=== PATIENT | female | born 1970 | race African-American/Black ===

== ENCOUNTER 2017-05-02 18:36 | Emergency (ER) | payer MEDICAID | END 2017-05-02 21:38 | disposition home or self-care (01) | LOC: D.ER 18:36 | DX: S39.012A Strain of muscle, fascia and tendon of lower back, initial encounter (principal); V49.59XA Passenger injured in collision with other motor vehicles in traffic accident, initial encounter; Y93.89 Activity, other specified; Y92.410 Unspecified street and highway as the place of occurrence of the external cause; I10 Essential (primary) hypertension ==

== ENCOUNTER → 2017-06-23 10:28 | Outpatient (CLI) | payer MEDICAID | END | disposition home or self-care (01) | LOC: D.MRI 10:00 | DX: M54.5 Low back pain (principal) ==

== ENCOUNTER → 2019-03-24 17:12 | Outpatient (CLI) | payer SELFPAY ==
[~2019-03-24 17:12] MED LIST: AMBIEN10 MG PO; BENADRYL25 MG PO; CELEXA40 MG PO; IBUPROFEN200 MG PO; KLONOPIN1 MG PO; MULTI-DAY VITAM1 TAB PO; NORVASC10 MG PO; VALSARTAN-HCTZ1 EAC2 PO
== END | disposition home or self-care (01) ==
LOC: D.LABREF 17:12
PROVIDERS: ATTEND Orthopaedic Surgery
DX: M16.12 Unilateral primary osteoarthritis, left hip (principal)

== ENCOUNTER 2019-04-12 07:35 | Outpatient (CLI) | payer MEDICARE ==
[2019-04-07 11:56] LABS: CALC OSMOLALITY 282 mosm/kg (275-300); CALCIUM 8.9 mg/dL (8.5-10.1); CARBON DIOXIDE 28.8 mmol/L (21.0-32.0); CHLORIDE - SERUM 103 mmol/L (98-107); CREATININE - SERUM 0.7 mg/dL (0.6-1.3); POTASSIUM - SERUM 3.4 mmol/L (3.5-5.1); SODIUM 140 mmol/L (136-145); UREA NITROGEN 8 mg/dL (7-18); eGFR NON AFRICAN AMERICAN > 90 mL/min (90-120)
[2019-04-07 11:57] LABS: GLUCOSE 207 mg/dL (74-106)
[2019-04-07 11:59] LABS: APTT 26.3 SECONDS (22.8-39.4); INR 1.01 (0.85-1.17); PROTIME 12.8 SECONDS (11.6-15.0)
[2019-04-07 12:08] LABS: BASOPHILS 0.2 % (0-2); EOSINOPHILS 5.3 % (0-7); HEMATOCRIT 42.3 % (36.0-48.0); HEMOGLOBIN 13.5 g/dL (12-16); IMMATURE GRANULOCYTES 0.3 % (0-5); LYMPHOCYTES 24.8 % (15-50); MCH 27.6 pg (26.0-34.0); MCHC 31.9 g/dL (31.0-37.0); MCV 86.3 fL (80.0-100.0); MEAN PLATELET VOLUME 10.2 fL (7.4-10.4); MONOCYTES 9.9 % (2-11); NEUTROPHILS 59.5 % (40-80); PLATELET COUNT 283 10x3/uL (130-400); RDW 14.5 % (11.5-14.5); WBC 8.6 10x3/uL (4.8-10.8)
[2019-04-07 12:33] LABS: APPEARANCE CLEAR (CLEAR); COLOR YELLOW (YELLOW); SPECIFIC GRAVITY 1.015 (1.005-1.020)
[2019-04-07 12:36] LABS: BILIRUBIN NEGATIVE (NEGATIVE); EPITHELIAL CELLS 0-5 /hpf (0-5); GLUCOSE 250 mg/dL (NEGATIVE); KETONE NEGATIVE (NEGATIVE); NITRITE NEGATIVE (NEGATIVE); PROTEIN NEGATIVE (NEGATIVE); RED CELLS - URINE OCC /hpf (0-5); UROBILINOGEN NORMAL (NORMAL); WHITE CELLS - URINE OCC /hpf (NEGATIVE)
[2019-04-07 12:38] LABS: BACTERIA MODERATE /hpf (NEGATIVE)
[2019-04-07 12:39] LABS: MUCUS <1+ /lpf (NONE SEEN)
[~2019-04-12] VITALS: Ht 177.8 cm; Wt 162.4 kg
--- NOTE | 2019-04-12 08:00 | NUR ---
PROCEDURE CANCELLED PER DR MUÑIZ DUE TO POSITIVE UTI.
--- NOTE | 2019-04-12 08:02 | NUR ---
PT LEAVING OPS AT THIS TIME, NAD NOTED.
== END 2019-04-12 08:07 | disposition home or self-care (01) ==
LOC: D.OPS 07:35 → D.SDCHOLD 07:35 → D.OPS 08:07 → D.SDCHOLD 08:20 → EDSTATUS 10:00 → D.SDCHOLD 10:45
PROVIDERS: ATTEND Orthopaedic Surgery
DX: M16.12 Unilateral primary osteoarthritis, left hip (principal)

== ENCOUNTER 2019-04-12 07:37 | Inpatient (IN) | payer MEDICARE, OTHER ==
[~2019-04-12] VITALS: Ht 177.8 cm; Wt 161.4 kg
[2019-05-07] MEDS ORDERED: TENORMIN50 MG PO (07:58)
[2019-05-07 08:38] LABS: BASOPHILS 0.4 % (0-2); HEMOGLOBIN 12.7 g/dL (12-16); IMMATURE GRANULOCYTES 0.4 % (0-5); LYMPHOCYTES 35.9 % (15-50); MCH 27.1 pg (26.0-34.0); MCHC 31.8 g/dL (31.0-37.0); MCV 85.3 fL (80.0-100.0); MEAN PLATELET VOLUME 9.5 fL (7.4-10.4); MONOCYTES 8.1 % (2-11); NEUTROPHILS 49.2 % (40-80); PLATELET COUNT 288 10x3/uL (130-400); RBC 4.69 10x6/uL (4.00-5.40); RDW 14.6 % (11.5-14.5); WBC 8.1 10x3/uL (4.8-10.8)
[2019-05-07 08:45] LABS: CALC OSMOLALITY 288 mosm/kg (275-300); CALCIUM 8.2 mg/dL (8.5-10.1); CHLORIDE - SERUM 106 mmol/L (98-107); CREATININE - SERUM 0.7 mg/dL (0.6-1.3); GLUCOSE 186 mg/dL (74-106); POTASSIUM - SERUM 3.7 mmol/L (3.5-5.1); SODIUM 142 mmol/L (136-145); UREA NITROGEN 16 mg/dL (7-18); eGFR NON AFRICAN AMERICAN > 90 mL/min (90-120)
[2019-05-07 08:59] LABS: APTT 27.5 SECONDS (22.8-39.4); INR 1.05 (0.85-1.17); PROTIME 13.2 SECONDS (11.6-15.0)
[2019-05-07 10:58] LABS: APPEARANCE HAZY (CLEAR); BILIRUBIN NEGATIVE (NEGATIVE); COLOR YELLOW (YELLOW); GLUCOSE 50 mg/dL (NEGATIVE); KETONE SMALL mg/dL (NEGATIVE); NITRITE NEGATIVE (NEGATIVE); PROTEIN TRACE mg/dL (NEGATIVE); SPECIFIC GRAVITY 1.025 (1.005-1.020); UROBILINOGEN NORMAL (NORMAL)
[2019-05-07 10:59] LABS: AMORPHOUS SEDIMENT <1+ /lpf (NONE SEEN); BACTERIA MODERATE /hpf (NEGATIVE); EPITHELIAL CELLS 0-5 /hpf (0-5); MUCUS <1+ /lpf (NONE SEEN); RED CELLS - URINE 0-5 /hpf (0-5); WHITE CELLS - URINE 0-5 /hpf (NEGATIVE)
[2019-05-07 11:00] LABS: CALCIUM OXALATE CRYSTALS OCC /hpf (NONE SEEN)
[2019-05-10 07:05] VITALS: BP 183/100; BMI 51.4
[2019-05-10] MEDS ORDERED: ACETAMINOPHEN500 M1 PO (07:14)
[2019-05-10 08:51] LABS: APPEARANCE CLEAR (CLEAR); BACTERIA FEW /hpf (NEGATIVE); BILIRUBIN NEGATIVE (NEGATIVE); COLOR YELLOW (YELLOW); GLUCOSE 500 mg/dL (NEGATIVE); KETONE NEGATIVE (NEGATIVE); MUCUS <1+ /lpf (NONE SEEN); NITRITE NEGATIVE (NEGATIVE); PROTEIN TRACE mg/dL (NEGATIVE); RED CELLS - URINE NONE SEEN /hpf (0-5); SPECIFIC GRAVITY 1.015 (1.005-1.020); UROBILINOGEN NORMAL (NORMAL); WHITE CELLS - URINE 0-5 /hpf (NEGATIVE)
--- NOTE | 2019-05-10 10:07 | NUR ---
PREVENA WOUNDVAC PLACED POSTOPERATIVE
[2019-05-10 11:43] VITALS: BP 150/92
[2019-05-10 13:19] VITALS: Ht 177.8 cm; Wt 161.4 kg
--- NOTE | 2019-05-10 14:02 | OP ---
PATIENT NAME: JANETTE CHILEL MEDICAL RECORD: [id number] :66 LOCATION:D[id number] ADMISSION DATE:05/10/19 SURGEON: LARS MUÑIZ MD DATE OF OPERATION: 05/10/2019 PREOPERATIVE DIAGNOSIS: Severe avascular necrosis with collapse of the left hip. SECONDARY DIAGNOSIS: Morbid obesity. POSTOPERATIVE DIAGNOSIS: Severe avascular necrosis with collapse of the left hip. PROCEDURE: Left total hip arthroplasty. SURGEON: Lars Muñiz MD ROOM SERVICE FOOD SERVICE ATTENDANT: VANIA Velez INTRAOPERATIVE COMPLICATIONS: None. SUMMARY OF PATHOLOGIC FINDINGS: The patient had clearly end-stage collapse of the femoral head as seen on radiographs. Furthermore, the patient does have morbid obesity; however, her inability to walk, rendered this is much like a hip fracture and surgery was planned, total hip arthroplasty was performed with no complications. IMPLANTS USED: Trident II Tritanium cluster hole acetabular shell size 56, alpha code F. Accolade 132 #3 TMZF coated. Trident X3 polyethylene 0-degree oh, Biolox delta ceramic V40 femoral head, standard. ESTIMATED BLOOD LOSS: 100 cc. OPERATIVE SUMMARY IN DETAIL: After obtaining the appropriate preoperative orthopedic surgery consent as well as anesthetic consultation, evaluation and clearance, the patient was brought to the operating room and placed on the operating table in supine position. After adequate general endotracheal anesthesia had been administered, the patient was placed in a right lateral decubitus position. All pressure points were well padded to include down leg peroneal pad as well as axillary roll. The patient was held firmly to the operating table using the vacuum pack suction system. The patient's left lower extremity and hip were prepped and draped in a routine sterile fashion. At this point, the appropriate timeout was taken with the appropriate patient identifiers and agreed upon by all. Curvilinear incision was made over the greater trochanter, taken down to the level of the IT band which was split in line with the fibers of the IT band and retracted to reveal the patient's gluteus medius and minimus muscular attachments of the greater trochanter. These were reflected anteriorly for direct visualization of the capsule. Capsule was excised and it required a substantial amount of fraying to get any rotation of the femoral head. Eventually, the femoral head was dislocated. The femoral neck cut was made using the [employer] femoral neck cutting guide. The acetabulum was then thoroughly exposed. Circumferential labrectomy was followed by serial and sequential reaming to a size 55 for a size 56 cup. The Trident II cup was in excellent position and locked in place with no need for screws. Polyethylene was then put in place and checked for stability. At this point, OPERATIVE REPORT [id number] JANETTE CHILEL attention was turned to the proximal femur. Serial and sequential reaming and broaching were done for a size 3. The patient had massive cortices and a small inner canal, size 3 TMZF coated stem was placed. Appropriate trials were taken. It was felt that the standard was the most appropriate for leg length positioning. Standard was then tamped into place on the Kimble taper. The hip was reduced. Intraoperative radiographs were taken and showed the patient to have excellent leg length quality. Wound was then copiously irrigated, filled with a gram of vancomycin and a gram of tobramycin and then the gluteus medius and minimus were reattached to the greater trochanter in a transosseous fashion with #5 Ethibond. The remainder of the closure was done by Delmer Blount including the IT band with #2 Ethibond. Subcutaneous closure with 0 Vicryl followed by a 2-0 Vicryl and skin naz. Sterile dressings were applied. The patient was awakened and taken to the recovery room in stable condition. All final needle and sponge counts were correct. TRANSINT:[id number] Voice Confirmation ID: [id number] DOCUMENT ID: [id number] ANTONINO MACIAS, LARS PALMA at 1402 CC: [id number] DICTATION DATE: 05/10/19 1000 COLORING ROOM WORKER: 05/10/19 1336 ADM IN [facility] [address] [place] [address]
--- NOTE | 2019-05-10 19:17 | NUR ---
ATE MOST OF SUPPER. PUREWICK WITH 800CC OUT. DENIES NEEDS.
--- NOTE | 2019-05-10 19:40 | NUR ---
PT SITTING UP IN BED WITHOUT DISTRESS, AOX4. LEFT HIP DRESSING CDI. O2 5L/NC. PUREWICK IN PLACE. IV RIGHT HAND INFUSING 1/2NS @ 100. PT STATES PAIN 12/26. GAVE OXY ORDERED. DENIES OTHER NEEDS. CL IN REACH, WILL CTM
[2019-05-10 20:37] VITALS: BP 149/80
--- NOTE | 2019-05-10 21:15 | NUR ---
PT STATES PAIN IN LEFT HIP 11/25, GAVE TORADOL ORDERED. WILL CTM
[2019-05-11 00:52] VITALS: BP 150/80
--- NOTE | 2019-05-11 01:00 | NUR ---
PT STATES PAIN 12/26, GAVE OXY ORDERED. WILL CTM
[2019-05-11 04:28] VITALS: BP 147/76
[2019-05-11 05:24] LABS: HEMATOCRIT 37.6 % (36.0-48.0); HEMOGLOBIN 11.7 g/dL (12-16); MCH 26.7 pg (26.0-34.0); MCHC 31.1 g/dL (31.0-37.0); MCV 85.6 fL (80.0-100.0); MEAN PLATELET VOLUME 9.6 fL (7.4-10.4); RBC 4.39 10x6/uL (4.00-5.40); RDW 14.6 % (11.5-14.5); WBC 10.6 10x3/uL (4.8-10.8)
--- NOTE | 2019-05-11 07:00 | NUR ---
ALERT AND ORIENTED, RESTING IN BED WITH EYES OPEN. NO C/O PAIN. NO S/S OF ACUTE DISTRESS NOTED. 2L O2, NC. IV TO RIGHT HAND, 1/2 NS INFUSING @ 100ML/HR. SITE PATENT WITHOUT REDNESS OR SWELLING. UP WITH PHYSICAL THERAPY. POD #1 LEFT HIP, PROVENA WOUNDVAC IN PLACE. PUREWICK IN PLACE. DENIES ANY NEEDS AT THIS TIME. CALL LIGHT IN REACH. WILL CONTINUE TO MONITOR.
[2019-05-11 08:53] VITALS: BP 126/80
--- NOTE | 2019-05-11 12:02 | NUR ---
I have reviewed this patient and I concur with the Shift Assessment completed by the Licensed Practical Nurse today this shift.
--- NOTE | 2019-05-11 12:18 | NUR ---
Rehab Note- Acute Inpatient Rehab prescreen order received. THe patient is POD #1 and has a pending PT Eval. Will follow at this time. Thank you for this referral! Maribel Ward RN Clinical Liaison, [facility] Rehab
[2019-05-11 12:55] VITALS: BP 148/89
[2019-05-11 16:49] VITALS: BP 153/85
--- NOTE | 2019-05-11 18:21 | NUR ---
ALERT AND ORIENTED, RESTING IN BED WITH EYES OPEN. DENIES ANY NEEDS AT THIS TIME. CALL LIGHT IN REACH. WILL CONTINUE TO MONITOR.
--- NOTE | 2019-05-11 19:45 | NUR ---
PT SITTING UP IN BED WITHOUT DISTRESS, AOX4. DENIES NEEDS AT THIS TIME. CL IN REACH, WILL CTM
[2019-05-11 21:10] VITALS: BP 169/78
[2019-05-12 04:56] LABS: HEMATOCRIT 35.8 % (36.0-48.0); HEMOGLOBIN 11.3 g/dL (12-16); MCH 26.8 pg (26.0-34.0); MCHC 31.6 g/dL (31.0-37.0); MCV 84.8 fL (80.0-100.0); MEAN PLATELET VOLUME 9.3 fL (7.4-10.4); RBC 4.22 10x6/uL (4.00-5.40); RDW 14.5 % (11.5-14.5); WBC 9.7 10x3/uL (4.8-10.8)
[2019-05-12 08:09] VITALS: BP 169/88
--- NOTE | 2019-05-12 08:18 | NUR ---
STATES PAIN IS A 8 OUT OF 10 ON THE PAIN SCALE. PAIN MED PROVIDED. CL IN REACH. PUREWICK IN PLACE. NO FURTHER NEEDS AT THIS TIME. WCTM
--- NOTE | 2019-05-12 15:27 | NUR ---
PATIENT ASSISTED TO BEDSIDE COMMODE AND BACK TO BED. CL IN REACH. NO FURTHER NEEDS. WCTM
[2019-05-12 15:49] VITALS: BP 151/64
--- NOTE | 2019-05-12 17:37 | NUR ---
FAMILY IN ROOM. 2 ICE PACKS REQUESTED AND PROVIDED. PAIN MED PROVIDED. CL IN REACH. NO FURTHER NEEDS AT THIS TIME.
--- NOTE | 2019-05-12 20:00 | NUR ---
ALERT RESTIGN IN BED, REOPORTS GOOD PAIN RELIEF FROM PAIN PILL EARLIER, ASSISTED UP TO BEDSIDE COMODE AND BACK TO BED, DRESSING INTACT TO LEFT HIP WITH WOUND VAC, SUCTION HOSE PULLED LOOSE FROM DRESSING, REPLACED AND SECURED WITH WOUND VAC TRANPARENT DRESSING GOOD SUCTION OBTAINED, SEE SHIFT ASSESSEMENT, CALL LIGHT IN REACH
[2019-05-13] VITALS: BP 144/73
[2019-05-13] MEDS ORDERED: ELIQUIS2.5 MG PO (08:32)
[2019-05-13] MEDS ORDERED: PERCOCET 10-321 EAC1 PO (08:32)
[2019-05-13 08:43] VITALS: BP 149/85
--- NOTE | 2019-05-13 09:02 | MORECARE ---
CASE MANAGEMENT DISCHARGE SUMMARY PATIENT: JANETTE CHILEL UNIT: [id number] ADM DATE: 05/10/19 AGE: 48 : [birth year] SEX: F ROOM/BED: [id number].2211 AUTHOR: KALIE,DOC PHYSICIAN: REFERRING PHYSICIAN: LARS MUÑIZ MD DATE OF SERVICE: 05/13/19 Discharge Plan Patient Name: JANETTE CHILEL Facility: [facility]:[place] : 1970 Planned Disposition: Inpatient Rehab Anticipated Discharge Date: Discharge Date: Expected LOS: Initial Reviewer: [email or web address] Initial Review Date: 05/10/2019 Generated: 05/13/19 10:02 am Comments DCP- Discharge Planning Updated by [email or web address]: Nel Hernandez on 05/13/19 7:[address] Patient Name: JANETTE CHILEL Admission Status: Elective Accout number: [id number] Admission Date: 05-10-2019 : 1970 Admission Diagnosis: Attending: LASR MUÑIZ Current LOS: 3 Anticipated DC Date: Planned Disposition: Inpatient Rehab Primary Insurance: MEDICARE A & B Discharge Planning Comments: CM met with patient to complete initial dc planning assessment. CM educated patient on the CM role and verbal consent given by patient to complete assessment. Patient lives at home alone where she is having difficulty caring for herself these past 4 months. At discharge patient plans to go to inpatient rehab at [facility] and feels this is a safe discharge. CM discussed availability of home health, rehab services, and medical equipment. Patient states that she has a cane and a rollator walker at home. Patient has 10 steps in front and 5 steps in back. [facility] for inpatient rehab obtained along with IMM served and explained. Patient denied known discharge needs at this time. CM will continue to follow and will assist as needed with dc plans/needs. First Coat Operator: Nel Hernandez DCPIA - Discharge Planning Initial Assessment Updated by [email or web address]: Nel Hernandez on 05/13/19 8:57 am * Is the patient Alert and Oriented? Yes * How many steps to enter\exit or inside your home? 02/20 * PCP [place] * Pharmacy [facility] * Preadmission Environment Home Alone * ADLs Partial Dependent * Partial ADLs (Assistance needed) Ambulation Bathing Toileting * Equipment Cane Rolling Walker * List name and contact numbers for known caregivers / representatives who currently or will assist patient after discharge: JUAN [phone] * Verbal permission to speak to the caregivers and representatives has been obtained from the patient. N/A * Community resources currently utilized None * Additional services required to return to the preadmission environment? Yes * Can the patient safely return to the preadmission environment? No * Has this patient been hospitalized within the prior 30 days at any hospital? No Coverage Notice Reviewer: [email or web address] Aaron Hernandez Notice Issued Date-Time: 05/13/2019 8:45 Notice Type: Patient Choice Letter Notice Delivered To: Patient Relationship to Patient: Wax Pumper Name: Delivery Method: HAND - Hand Delivered Ruthy Days: Prior Verbal Notification: Recipient Understood Notice: Yes Recipient Signature: Yes Med Rec Note Co-signed by Attending: Coverage Notice Comment: Reviewer: [email or web address] Aaron Hernandez Notice Issued Date-Time: 05/13/2019 8:45 Notice Type: IM Discharge Notice Notice Delivered To: Patient Relationship to Patient: Wax Pumper Name: Delivery Method: HAND - Hand Delivered Ruthy Days: Prior Verbal Notification: Recipient Understood Notice: Yes Recipient Signature: Yes Med Rec Note Co-signed by Attending: Coverage Notice Comment: [facility] FOR INPATIENT REHAB AT [facility] Patient Name: JANETTE CHILEL Page [phone] at 0902 All edits/amendments must be made on the electronic document DICTATION DATE: 05/13/19901 RUG CLEANER: RAJAN 05/13/19901 RPT#: [id number] DC DATE: STATUS: ADM IN [facility] [address] [place] [address] END OF REPORT
--- NOTE | 2019-05-13 11:02 | NUR ---
PATIENT RECIEVED THIS AM FROM PREVIOUS NURSE RESTING IN BED WITH NO NEEDS VOICED. WOUND VAC DRESSING INTACT TO LEFT HIP. PAIN CONTROLED WITH PERCOCET. PATIENT ASSISTED TO BSC WITH USE OF WALKER AND TOLERATED WELL. PATIENT TO DISCHARGE TO IP REHAB LATER TODAY.
[2019-05-13 12:26] VITALS: BP 147/86
--- NOTE | 2019-05-13 13:46 | NUR ---
REPORT CALLED TO JAYLA IN IP REHAB. IV REMOVED WITH NO REDNESS OR EDEMA NOTED. PATIENT TAKEN BY WHEELCHAIR TO REHAB
--- NOTE | 2019-05-14 11:48 | NUR ---
Removed Ulta vac and placed pt on her Prevena Plus machine.
== END 2019-05-13 13:48 | DRG 469 ==
LOC: D.SDCHOLD 07:37 → UNDOADMIN 07:37 → D.SDCHOLD 04-19 10:45 → D.MS 05-10 11:43 → D.SDCHOLD 05-10 17:15 → D.MS 05-13 13:48
PROVIDERS: ADMIT Orthopaedic Surgery; ATTEND Orthopaedic Surgery
PROC: 0SRB0J9 Replacement of Left Hip Joint with Synthetic Substitute, Cemented, Open Approach (ICD-10-PCS; principal; 2019-05-10 08:00)
DX: M87.852 Other osteonecrosis, left femur (principal); J95.2 Acute pulmonary insufficiency following nonthoracic surgery; Z68.43 Body mass index [BMI] 50.0-59.9, adult; M16.12 Unilateral primary osteoarthritis, left hip; E66.01 Morbid (severe) obesity due to excess calories

== ENCOUNTER 2019-05-13 13:32 | Inpatient (IN) | payer MEDICARE, OTHER ==
[~2019-05-13] VITALS: Ht 177.8 cm; Wt 161.5 kg
[~2019-05-13 13:32] MED LIST changes: +ACETAMINOPHEN500 M1 PO; +ELIQUIS2.5 MG PO; +PERCOCET 10-321 EAC1 PO; +TENORMIN50 MG PO
--- NOTE | 2019-05-13 14:12 | NUR ---
ADMITTED TO REHAB ROOM 1110. ALERT AND ORIENTED. NO DISTRESS NOTED. L HIP INCISION WITH WOUND VAC IN PLACE. SKIN CDI. CL IN REACH. SAFETY PRECAUTIONS GIVEN.
[2019-05-13 14:22] VITALS: BP 146/71; BMI 51.1
--- NOTE | 2019-05-13 14:49 | NUR ---
PATIENT ADMITTED TO REHAB FROM ACUTE FLOOR. DR. JULIEN IS HER PCP. DME AT HOME IS A CANE AND A ROLLATOR WALKER. DISCHARGE PLANS ARE FOR PATIENT TO RETURN HOME. WILL CONTINUE TO FOLLOW WITH PATIENT.
--- NOTE | 2019-05-13 19:16 | NUR ---
GREETED PATIENT AND INTRODUCED MYSELF HER NURSE. PATIENT IS LAYING IN BED ON LEFT SIDE AT THIS TIME RESTING. RESPIRATIONS EVEN. NO S/S OF DISTRESS. STATES THAT PAIN IS 6/10 IN LEFT HIP. DENIES ANY FURTHER NEEDS AT THIS TIME. CALL LIGHT IN REACH.
[2019-05-13 19:30] VITALS: BP 163/63
--- NOTE | 2019-05-14 02:25 | NUR ---
PT. RESTING QUIETLY. RESPIRATIONS EVEN. NO S/S OF DISTRESS. CALL LIGHT IN REACH.
[2019-05-14 07:08] LABS: BASOPHILS 0.2 % (0-2); EOSINOPHILS 4.8 % (0-7); HEMATOCRIT 37.8 % (36.0-48.0); HEMOGLOBIN 12.1 g/dL (12-16); IMMATURE GRANULOCYTES 0.5 % (0-5); LYMPHOCYTES 21.2 % (15-50); MCH 26.7 pg (26.0-34.0); MCV 83.3 fL (80.0-100.0); MEAN PLATELET VOLUME 9.1 fL (7.4-10.4); MONOCYTES 8.8 % (2-11); NEUTROPHILS 64.5 % (40-80); PLATELET COUNT 226 10x3/uL (130-400); RBC 4.54 10x6/uL (4.00-5.40); RDW 13.8 % (11.5-14.5); WBC 10.1 10x3/uL (4.8-10.8)
[2019-05-14 07:20] LABS: CALC OSMOLALITY 282 mosm/kg (275-300); CALCIUM 8.4 mg/dL (8.5-10.1); CARBON DIOXIDE 30.1 mmol/L (21.0-32.0); CHLORIDE - SERUM 103 mmol/L (98-107); CREATININE - SERUM 0.6 mg/dL (0.6-1.3); GLUCOSE 187 mg/dL (74-106); SODIUM 140 mmol/L (136-145); UREA NITROGEN 10 mg/dL (7-18); eGFR NON AFRICAN AMERICAN > 90 mL/min (90-120)
--- NOTE | 2019-05-14 08:00 | NUR ---
PT RESTING IN BED WITH EYES OPEN CALL LIGHT IN REACH WILL MONITER
[2019-05-14 10:24] VITALS: BP 147/83
[2019-05-14 13:43] VITALS: Ht 177.8 cm; Wt 161.5 kg
--- NOTE | 2019-05-14 17:48 | NUR ---
PT RESTING IN BED WITH EYES OPEN CALL LIGHT IN REACH WILL MONITER
[2019-05-14 19:00] VITALS: BP 175/84
--- NOTE | 2019-05-14 19:30 | NUR ---
PT LYING IN BED. CL IN REACH. DENIES NEEDS AT THIS TIME. BED IN LOW SIDE RAILS X2. A/O X4. LUNGS CLEAR. BOWEL ACTIVE X4. RESP EVEN AND UNLABORED. WILL CONTINUE TO MONITOR.
--- NOTE | 2019-05-15 01:11 | NUR ---
I have reviewed this patient and I concur with the Shift Assessment completed by the Licensed Practical Nurse today this shift.
[2019-05-15 08:00] VITALS: BP 107/82
--- NOTE | 2019-05-15 08:00 | NUR ---
PT RESTING IN BED WITH EYES OPEN CALL LIGHT IN REACH NO PROBLEMS WILL MONITER
--- NOTE | 2019-05-15 19:38 | NUR ---
PT IS RESTING IN BED WITH EYES OPEN. ALERT AND ORIENTED X 3. DENIES ACUTE DISCOMFORT AT THIS TIME. NO NEEDS VOICED. PROVENA IS INTACT TO LEFT HIP. VSS. SR'S ARE UP X 2 IN BED. CALL LIGHT AND BEDSIDE TABLE ARE WITHIN EASY REACH.
--- NOTE | 2019-05-15 22:05 | NUR ---
PT RESTING IN HER ROOM VISITING WITH FAMILY. NO NEEDS VOICED.
[2019-05-15 22:06] VITALS: BP 138/68
--- NOTE | 2019-05-15 23:50 | NUR ---
I have reviewed this patient and I concur with the Shift Assessment completed by the Licensed Practical Nurse today this shift.
--- NOTE | 2019-05-16 04:00 | NUR ---
PT ASSISTED TO THE BATHROOM WITH MIN ASSIST USING RW. NO FURTHER NEEDS VOICED.
[2019-05-16 08:00] VITALS: BP 153/71
--- NOTE | 2019-05-16 08:15 | NUR ---
PT AM MEDS ADMINISTERED. PT DENIES NEEDS. WCTM.
--- NOTE | 2019-05-16 19:24 | NUR ---
PT LYING IN BED RESTING QUIETLY. CL IN REACH. NO DISTRESS NOTED. A/O X4. LUNGS CLEAR. BOWEL ACTIVE X4. BED IN LOW SIDE RAILS X2. RESP EVEN AND UNLABORED. WILL CONTINUE TO MONITOR.
[2019-05-16 20:29] VITALS: BP 133/63
--- NOTE | 2019-05-17 00:31 | NUR ---
I have reviewed this patient and I concur with the Shift Assessment completed by the Licensed Practical Nurse today this shift.
[2019-05-17 06:16] LABS: BASOPHILS 0.2 % (0-2); EOSINOPHILS 4.9 % (0-7); HEMATOCRIT 35.7 % (36.0-48.0); HEMOGLOBIN 11.3 g/dL (12-16); IMMATURE GRANULOCYTES 0.8 % (0-5); LYMPHOCYTES 24.9 % (15-50); MCH 26.6 pg (26.0-34.0); MCHC 31.7 g/dL (31.0-37.0); MEAN PLATELET VOLUME 9.6 fL (7.4-10.4); MONOCYTES 11.4 % (2-11); NEUTROPHILS 57.8 % (40-80); PLATELET COUNT 253 10x3/uL (130-400); RBC 4.25 10x6/uL (4.00-5.40); RDW 14.2 % (11.5-14.5); WBC 9.3 10x3/uL (4.8-10.8)
[2019-05-17 06:22] LABS: CALC OSMOLALITY 288 mosm/kg (275-300); CALCIUM 8.8 mg/dL (8.5-10.1); CARBON DIOXIDE 30.5 mmol/L (21.0-32.0); CHLORIDE - SERUM 101 mmol/L (98-107); CREATININE - SERUM 0.7 mg/dL (0.6-1.3); POTASSIUM - SERUM 3.8 mmol/L (3.5-5.1); SODIUM 140 mmol/L (136-145); UREA NITROGEN 14 mg/dL (7-18); eGFR NON AFRICAN AMERICAN > 90 mL/min (90-120)
[2019-05-17 06:23] LABS: GLUCOSE 260 mg/dL (74-106)
--- NOTE | 2019-05-17 09:40 | NUR ---
PT AM MEDS ADMINISTERED. PT DENIES NEEDS. WCTM.
--- NOTE | 2019-05-17 10:22 | RHP ---
PATIENT: JANETTE CHILEL MEDICAL RECORD: [id number] ACCOUNT: [id number] [facility] [birth year] ADMISSION DATE: 05/13/19 REHABILITATION HISTORY AND PHYSICAL EXAMINATION POST ADMISSION PHYSICIAN EXAMINATION ADMITTING DIAGNOSIS: Avascular necrosis status post total hip replacement. HISTORY OF PRESENT ILLNESS: The patient is a 48-year-old female patient who presented secondary to avascular necrosis and collapse of her left hip. She is morbidly obese, was admitted to the hospital to undergo a left total hip arthroplasty secondary to AVN. She has been progressively getting worse physically over the past 4 months with difficulty being able to take care of herself. She got a history of arthritis, lumbago, tobacco use, depression and anxiety. The patient underwent a total hip on 05/10/2019. She has had some postop complications including post-procedural respiratory insufficiency with hypoxia and pulmonary was consulted. She required about 7 liters of O2 to keep her sats greater than 90%. She has been weaned down during her stay to 2 liters, pulmonary believes that this was secondary to her BMI being greater than 50. She does snore at bedtime. The patient apparently has had some episodes of apnea also status post cyst. She is set up for a sleep study. She has been receiving PT during her acute hospital stay, has been progressing well. She is currently on supplemental O2, deconditioning, weakness, debility, impaired mobility, gait disturbance, is weightbearing as tolerated on her lower extremity. She has got self-care deficits. These are all barriers to her discharge home at this time. She lives at home, was independent with ADLs and mobility prior to this. She is currently setup for max assist for ADLs and mod assist with her mobility. She and her family would like for her to return home at her prior level of functioning or better. Comorbidities include severe avascular necrosis, collapse of left hip, morbidly obese, acute pain post-procedural, respiratory insufficiency, hypoxia, probable sleep apnea, atelectasis, UTI, elevated blood sugar, self-care deficits, impaired mobility, gait disturbance and fall risk. PAST MEDICAL HISTORY: Significant for allergies, arthritis, chronic lumbago, hypertension, tobacco use, depression, anxiety and obesity. PAST SURGICAL HISTORY: Includes tubal ligation and she has had a knee repair. ALLERGIES: PENICILLIN, LISINOPRIL AND METOPROLOL. CURRENT MEDICATIONS: Include hydrochlorothiazide 12.5 mg daily, Diovan 320 mg daily, multivitamin 1 tab daily, Celexa 40 mg daily, atenolol 50 mg daily, amlodipine 10 mg daily, zolpidem 10 mg at bedtime, Eliquis 2.5 mg b.i.d., Robaxin 1000 mg t.i.d. p.r.n., clonazepam 1 mg t.i.d., Percocet 10/325 one tab every 4 hours, Motrin 800 mg every 6 hours p.r.n., Benadryl 25 mg as needed, Tylenol 1000 mg every 6 hours p.r.n. pain. HABITS: Does have a history of tobacco use. FAMILY HISTORY: Noncontributory. SOCIAL HISTORY: The patient hopes to return back home and get back to her prior level of functioning. HISTORY AND PHYSICAL [id number] JANETTE CHILEL REVIEW OF SYSTEMS: GENERAL: Does complain of some weakness and fatigue. HEENT: Denies cold, cough, or congestion. CARDIOVASCULAR: Denies chest pain. PHYSICAL EXAMINATION: VITAL SIGNS: Stable. She is afebrile. GENERAL: A morbidly obese female in no acute distress upon exam. HEENT: Normocephalic and atraumatic. Mucosa moist. NECK: Supple. No lymphadenopathy. LUNGS: Clear in the upper [place], but does have decreased breath sounds in the bases secondary to body habitus. CARDIOVASCULAR: Regular rate and rhythm. ABDOMEN: Soft, obese, nontender, nondistended. Positive bowel sounds times 4. EXTREMITIES: Does have changes consistent with hip surgery. NEUROLOGIC: She is mainly intact. LABORATORY DATA: Her white count is 10.1, H&H of 12 and 37, and platelet count is noted to be 226. Her sodium is 140, potassium 4.0, BUN and creatinine of 10 and 0.6 and blood sugar is noted to be 187. ASSESSMENT: This is a 48-year-old female patient admitted to rehab with a working diagnosis of avascular necrosis of her hip, status post total hip arthroplasty. The patient has potential to make improvement. We instituted the following multidisciplinary therapies include, but not limited to physical, occupational, respiratory, speech, nutritional services, prosthetics and orthotics. Given her complex medical condition and risk for more complications, rehabilitation services cannot be provided at a low level of care such a longterm facility. PLAN: 1. Admit to [facility] for intensive inpatient therapy to include the following disciplines; A. Physical therapy to improve gait, all transfer skills and bed mobility to a modified independent level. B. Occupational therapy to improve activities of daily living. C. Case management to assist with discharge planning and placement options. D. Nutrition to assist with nutritional needs. E. Rehabilitation nursing to assist in monitoring the patient's underlying medical conditions and to assist with any type of bowel or bladder management. 2. The patient current medications and medical care will be continued. 3. The patient will be placed on standard fall precautions. 4. The patient's estimated length of stay is approximately 7-10 days. 5. We will discuss this patient during care team staff meeting this week. Continue on home medications where appropriate and see again in the a.m. TRANSINT:[id number] Voice Confirmation ID: [id number] DOCUMENT ID: [id number] SUZI notes whether there has been none or any medical/functional change since admission: - No change since the PAS HISTORY AND PHYSICAL [id number] JANETTE CHILEL attests patient continues to be appropriate for IRF: - Remains appropriate for the ARU MAHAD MARTINO MD at 1022 CC: [id number] DICTATION DATE: 05/14/19 0854 RN CALL CENTER: 05/14/19 1128 ADM IN [facility] [address] [place] [address]
[2019-05-17 10:30] VITALS: BP 153/71
--- NOTE | 2019-05-17 15:01 | NUR ---
Nutrition Follow-up: Diet: Regular PO intake: 100% x all meals. She states that she is ordering extra foods on her tray because she gets hungry at night between dinner time and breakfast time. States that her appetite is "fine." Last BM: 05/15/19. WT: 356# (05/14/19) Labs noted: A1c 9.2% (04/20/19), Glu 260mg/dL. Meds reviewed. Noted pt with incision with wound VAC to L hip. Changed diet to diabetic 2/2 elevated A1c. Patient may have double meat and double non-starchy vegetable servings. RD following.
--- NOTE | 2019-05-17 20:00 | NUR ---
PT IS UP IN WC PROPELLING HERSELF ABOUT THE FACILITY. ALERT AND ORIENTED X 3. DENIES ACUTE PAIN OR DISCOMFORT AT THIS TIME. PROVENA IS INTACT TO LEFT HIP. DRAINING DARK DRAINAGE. VSS. NO NEEDS VOICED.
[2019-05-17 21:14] VITALS: BP 130/81
--- NOTE | 2019-05-17 22:10 | NUR ---
PT IS RESTING IN BED WITH EYES OPEN. NO NEEDS VOICED AT THIS TIME.
--- NOTE | 2019-05-18 00:01 | NUR ---
PT RESTING IN BED WITH EYES CLOSED.
--- NOTE | 2019-05-18 02:46 | NUR ---
I have reviewed this patient and I concur with the Shift Assessment completed by the Licensed Practical Nurse today this shift.
[2019-05-18 07:30] VITALS: BP 142/60
--- NOTE | 2019-05-18 08:34 | NUR ---
PT AM MEDS ADMINISTERED. PT PARTICIPATING IN THERAPY AT THIS TIME, DENIES NEEDS. WCTM.
--- NOTE | 2019-05-18 10:37 | NUR ---
CARE TEAM MEETING: PATIENT IS PROGRESSING WELL IN THERAPY. TENATIVE DISCHARGE DATE IS 05/20/18. WILL CONTINUE TO FOLLOW WITH PATIENT.
--- NOTE | 2019-05-18 19:44 | NUR ---
PATIENT RECEIVED SITTING UP IN BED. ASSESSMENT & VITAL SIGNS DONE. BED LOW. CALL LIGHT WITHIN REACH. WILL CONTINUE TO MONITOR.
[2019-05-18 21:34] VITALS: BP 137/74
--- NOTE | 2019-05-19 00:22 | NUR ---
I have reviewed this patient and I concur with the Shift Assessment completed by the Licensed Practical Nurse today this shift.
--- NOTE | 2019-05-19 04:27 | NUR ---
PATIENT AWAKE USED CALL LIGHT FOR ASSIST. PATIENT HAD URINE INCONTINENCE IN BED. BEDDING CHANGED. PATIENT C/O PAIN, OXYCODONE TO BE GIVEN WHEN PATIENT OUT OF BATHROOM. WILL CONTINUE TO MONITOR.
[2019-05-19 08:00] VITALS: BP 127/70
--- NOTE | 2019-05-19 08:00 | NUR ---
PT RESTING IN BED WITH EYES OPEN CALL LIGHT IN REACH NO PROBLEMS WILL MONITER
--- NOTE | 2019-05-19 19:36 | NUR ---
REPORT RECIEVED AND ROUNDING COMPLETE. PATIENT ASKED FOR SOMETHINF FOR HEARTBURN, CHECK MAR AND THERE IS NOTHING TO GIVE. ASKED HER IS SHE WANTED SOME MILK TO SIP ON AND SHE STATED NO THANK YOU. PATIENT IS SITTING UP IN HER WHEELCHAIR AT THIS TIME. PATIENT STATES SHE HAS NO NEEDS. PAITENT HAS NO PIV AND NO O2. PATIENT SHOWS NO S/SX OF DISTRESS AT THIS TIME. CALL LIGHT WITHIN REACH AND BED IN LOWEST LOCKED POSITION. WILL CONTINUE TO MONITOR.
--- NOTE | 2019-05-19 19:55 | NUR ---
REPORT RECIEVED AND ROUNDING COMPLETE. PATIENT SITTING UP ON HER BED, PATIENT ASKED FOR GERARDO, GAVE IT TO HER. PATIENT HAS NO OTHER NEEDS AT THIS TIME. PATIENT SHOWS NO S/SX OF DISTRESS AT THIS TIME. CALL LIGHT WITHIN REACH AND BED IN LOWEST LOCKED POSITION. PATIENT HAS NO PIV OR O2 AT THIS TIME.
[2019-05-19 20:34] VITALS: BP 129/70
--- NOTE | 2019-05-20 00:25 | NUR ---
I have reviewed this patient and I concur with the Shift Assessment completed by the Licensed Practical Nurse today this shift.
--- NOTE | 2019-05-20 02:03 | NUR ---
PATIENT CALLED AND ASKED FOR A PAIN PILL AND TO BE PUT ON HER BIPAP. ASSISTED WITH HER BIPAP, IT IS NOT TIME FOR HER PAIN MEDS.
[2019-05-20 06:12] LABS: BASOPHILS 0.2 % (0-2); EOSINOPHILS 3.4 % (0-7); HEMATOCRIT 35.2 % (36.0-48.0); IMMATURE GRANULOCYTES 1.1 % (0-5); LYMPHOCYTES 27.7 % (15-50); MCH 26.3 pg (26.0-34.0); MCHC 31.3 g/dL (31.0-37.0); MEAN PLATELET VOLUME 9.8 fL (7.4-10.4); MONOCYTES 9.8 % (2-11); NEUTROPHILS 57.8 % (40-80); RBC 4.19 10x6/uL (4.00-5.40); RDW 14.2 % (11.5-14.5); WBC 10.4 10x3/uL (4.8-10.8)
[2019-05-20 06:19] LABS: CALC OSMOLALITY 292 mosm/kg (275-300); CALCIUM 8.5 mg/dL (8.5-10.1); CARBON DIOXIDE 29.6 mmol/L (21.0-32.0); CHLORIDE - SERUM 103 mmol/L (98-107); CREATININE - SERUM 0.7 mg/dL (0.6-1.3); POTASSIUM - SERUM 4.2 mmol/L (3.5-5.1); SODIUM 140 mmol/L (136-145); UREA NITROGEN 14 mg/dL (7-18); eGFR NON AFRICAN AMERICAN > 90 mL/min (90-120)
[2019-05-20 06:20] LABS: GLUCOSE 332 mg/dL (74-106)
[2019-05-20 06:24] LABS: PLATELET COUNT 342 10x3/uL (130-400)
--- NOTE | 2019-05-20 07:34 | NUR ---
REPORT RECIEVED. PT RESTING QUIETLY WITH EYES CLOSED, RISE AND FALL OF CHEST NOTED. BED LOCKED AND IN LOWEST POSITION,CALL LIGHT WITHIN REACH. WILL CTM.
[2019-05-20 08:00] VITALS: BP 139/58
--- NOTE | 2019-05-20 11:34 | NUR ---
PREVENA REMOVED AND AQUACELL PLACED ON PTS L HIP. INCISION IS C/D/I. WILL CTM
--- NOTE | 2019-05-20 14:59 | NUR ---
Nutrition Follow-up: Diet: Diabetic PO intake: 100% x all meals. Reports that her appetite is "fine." Last BM: 05/19/19. WT: 356# (05/14/19), no new wt Meds reviewed. Labs noted: Glu 332mg/dL. Skin: incision with wound VAC in place. Continue current diet. RD following.
--- NOTE | 2019-05-20 17:28 | NUR ---
FAMILY VISITING AND TOOK PT FOR A RIDE IN .
--- NOTE | 2019-05-20 19:54 | NUR ---
PATIENT RECEIVED SITTING UP IN WHEELCHAIR. ASSESSMENT & VITAL SIGNS DONE. NO C/O PAIN OR DISTRESS. CALL LIGHT WITHIN REACH. WILL CONTINUE TO MONITOR.
[2019-05-20 20:24] VITALS: BP 130/73
--- NOTE | 2019-05-21 00:07 | NUR ---
I have reviewed this patient and I concur with the Shift Assessment completed by the Licensed Practical Nurse today this shift.
--- NOTE | 2019-05-21 04:11 | NUR ---
PATIENT C/O PAIN & MUSCLE SPASMS. PATIENT GIVEN HER PERCOCET & ROBAXIN. BED LOW. CALL LIGHT WITHIN REACH. WILL CONTINUE TO MONITOR.
[2019-05-21 07:21] VITALS: BP 129/78
[2019-05-21] MEDS ORDERED: PERCOCET 10-321 EAC1 PO (08:34)
--- NOTE | 2019-05-21 17:01 | NUR ---
PT RESTING IN BED WITH EYES OPEN CALL LIGHT IN REACH WILL MONITER
--- NOTE | 2019-05-21 17:04 | NUR ---
PT RESTING IN BED WITH EYES OPEN CALL ROMELIA SEXTON WILL MONITER
[2019-05-21 19:00] VITALS: BP 132/76
--- NOTE | 2019-05-21 19:00 | NUR ---
BEDSIDE REPORT COMPLETE. PT LYING IN BED ON LEFT SIDE EYES CLOSED RESTING. RR EVEN AND UNLABORED. EASILY AROUSED WITH VERBAL STIMULI. DENIES ANY NEEDS. C/O MILD DISCOMFORT LEFT HIP AND INNER THIGH. VS STABLE. CL IN REACH. FALL PRECAUTIONS IN PLACE. WILL CONTINUE TO MONITOR
--- NOTE | 2019-05-22 00:48 | NUR ---
QUIET HOURS. PT LYING IN BED ON RIGHT SIDE EYES CLOSED RESTING QUIETLY. RR EVEN AND UNLABRED. CL IN REACH
--- NOTE | 2019-05-22 03:50 | NUR ---
PT LYING IN BED ON LEFT SIDE EYES CLOSED RESTING. RR EVEN AND UNLABORED. CL IN REACH
[2019-05-22 08:00] VITALS: BP 149/70
--- NOTE | 2019-05-22 08:00 | NUR ---
RESTING QUIETLY IN BED, EYES CLOSED. DENIES NEEDS. CALL LIGHT IN REACH
--- NOTE | 2019-05-22 14:20 | NUR ---
HAS BEEN ROLLING AROUND IN IN UNIT. ASKS FOR PAIN MEDS AND MUSCLE RELAXERS. TRANSFERS BY SELF. CALL LIGHT IN REACH
[2019-05-22 19:10] VITALS: BP 131/68
--- NOTE | 2019-05-22 19:10 | NUR ---
BEDSIDE REPORT COMPLETE. SITTING UP IN W/C ALERT AND ORIENTED X4. DENIES ANY NEEDS OR PAIN. NO SIGNS OF ACUTE DISTRESS NOTED. LEFT HIP DRESSING C/D/I. NO REDNESS OR SWELLING AROUND SITE. VS STABLE SHIFT ASSESSMENT COMPLETE. CL IN REACH. FALL PRECAUTIONS IN PLACE. WILL CONTINUE TO MONITOR
--- NOTE | 2019-05-22 23:20 | NUR ---
QUIET HOURS. PT LYING IN BED ON LEFT SIDE EYES CLOSED RESTING. RR EVEN AND UNLABORED. CL IN REACH
--- NOTE | 2019-05-23 01:40 | NUR ---
PT SITTING UP IN W/C CHANGED SOILED CHUX ON BED. PT DENIES ANY OTHER NEEDS AT THIS TIME.
--- NOTE | 2019-05-23 05:31 | NUR ---
PT LYING IN BED ON RIGHT SIDE EYES CLOSED RESTING. NO SIGNS OF ACUTE DISTRESS NOTED. CL IN REACH
[2019-05-23 08:00] VITALS: BP 130/68
--- NOTE | 2019-05-23 17:48 | NUR ---
SITTING ON SIDE OF BED FOR SUPPER. DENIES NEW C/O. USES WC FOR MOTION ASST. CALL LIGHT IN REACH
[2019-05-23 19:20] VITALS: BP 136/72
--- NOTE | 2019-05-23 19:20 | NUR ---
BEDSIDE REPORT COMPLETE. PT SITTING UP IN W/C VISITING WITH FAMILY. NO SIGNS OF ACUTE DISTRESS NOTED. DENIES ANY NEEDS. C/O MILD DISCOMFORT LEFT HIP. VS STABLE. SHIFT ASSESSMENT COMPLETE. CL IN REACH. FALL PRECAUTIONS IN PLACE. WILL CONTINUE TO MONITOR
--- NOTE | 2019-05-23 23:35 | NUR ---
QUIET HOURS. PT LYING IN BED ON RIGHT SIDE EYES CLOSED RESTING. RR EVEN AND UNLABORED. CL IN REACH
--- NOTE | 2019-05-24 04:18 | NUR ---
PT LYING IN BED EYES CLOSED RESTING. RR EVEN AND UNLABORED. CL IN REACH
[2019-05-24 07:59] VITALS: BP 135/65
--- NOTE | 2019-05-24 13:06 | NUR ---
LAYING DOWN IN BED RESTING. DENIES NEEDS OR C/O. CALL LIGHT IN REACH
--- NOTE | 2019-05-24 17:44 | NUR ---
ROLLS AROUND IN WC. DOES MOST THINGS FOR HERSELF. DENIES C/O OR INCREASED PAIN.
[2019-05-24 19:20] VITALS: BP 129/67
--- NOTE | 2019-05-24 19:20 | NUR ---
BEDSIDE REPORT COMPLETE. PT PROPELLING SELF IN W/C DOWN HALLWAYS. DENIES ANY NEEDS. C/O 01/26 LEFT HIP AND BACK PAIN. WILL ADMININSTER PAIN MEDICATION. VS STABLE. SHIFT ASSESSMENT COMPLETE. WILL CONTINUE TO MONITOR
--- NOTE | 2019-05-25 00:10 | NUR ---
QUIET HOURS. PT LYING IN BED ON LEFT SIDE EYES CLOSED RESTING. RR EVEN AND UNLABORED. CL IN REACH
--- NOTE | 2019-05-25 03:33 | NUR ---
PT LYING IN BED ON RIGHT SIDE EYES CLOSED RESTING, RR EVEN AND UNLABORED. CL IN REACH
--- NOTE | 2019-05-25 06:26 | NUR ---
PT PROPELLING SELF IN HALLWAY. DENIES ANY NEEDS.
--- NOTE | 2019-05-25 08:00 | NUR ---
SHIFT ASSMT COMPLETED.UP OOB AND DRESSED.REVIEWED DC INSTRUCTIONS .APPT AND RX'S GIVEN.
--- NOTE | 2019-05-25 08:15 | NUR ---
DC'D HOME WITH RW WITH DAUGHTER.
--- NOTE | 2019-05-25 09:21 | NUR ---
PATIENT DISCHARGING HOME TODAY WITH FAMILY. A SCRIPT FOR OUTPATIENT THERAPY GIVEN TO PATIENT. JEREMIAS DELIVERED A ROLLING WALKER TO PATIENT. DR. JULIEN 05/31/2019 @ 11:15, DR. MUÑIZ 05/25/2019 @ 10:30. PATIENT CHOICE FORM SIGNED, DECLINING HOME HEALTH BUT REQUESTED OUT PATIENT THERAPY. [facility] FORM SIGNED, COPY GIVEN TO PATIENT AND FILED IN CHART. DISCHARGE INSTRUCTIONS FAXED TO PCP AND REVIEWED WITH PATIENT.
== END 2019-05-25 08:15 | disposition home or self-care (01) | DRG 560 ==
LOC: D.REHAB 13:32
PROVIDERS: ADMIT Emergency Medicine; ATTEND Emergency Medicine
DX: Z47.1 Aftercare following joint replacement surgery (principal); M87.9 Osteonecrosis, unspecified; J98.11 Atelectasis; N39.0 Urinary tract infection, site not specified; Z68.43 Body mass index [BMI] 50.0-59.9, adult; Z96.642 Presence of left artificial hip joint; E66.01 Morbid (severe) obesity due to excess calories; R09.02 Hypoxemia; R26.9 Unspecified abnormalities of gait and mobility; G89.18 Other acute postprocedural pain; R52 Pain, unspecified; R06.89 Other abnormalities of breathing